=== PATIENT | female | born 1960 | race African-American/Black ===

== ENCOUNTER 2016-09-03 13:54 | Emergency (ER) | payer MEDICAID ==
[~2016-09-03] VITALS: Ht 170.2 cm; Wt 90.5 kg
[~2016-09-03 13:54] MED LIST: AMOXICILLIN 8751 TAB PO; ASPIRIN 81M81 MG/TA2 PO; CATAPRES0.2 MG PO; CATAPRES0.3 MG PO; CIPRO 500MG TA500 MG PO; CLONIDINE0.1 MG PO; CYMBALTA 30MG30 MG PO; DOXYCYCLINE 10100 MG PO; FIBERCON PO; FLAGYL500 MG PO; FLEXERIL 1010 MG/TAB PO; FLONASE NASAL S16 GM NS; FLONASEALLERGY NS; HYDRODIURIL50 MG PO; K-DUR 10 MEQ T10 MEQ PO; K-DUR20 MEQ PO; LOPRESSOR100 MG PO; LORTAB 5/500 501 TAB PO; METOPROLOL TART50 MG PO; MOBIC 7.5MG7.5 MG PO; NAPROSYN500 MG PO; NEURONTIN600 MG/TAB PO; NO HOME MEDICATIONS; NORCO 325 MG-51 TAB PO; NORCO 325 MG-7.1 TAB PO; NORVASC 10MG10 MG PO; OXYCONTIN 10MG10 MG PO; PAXIL 20MG20 MG PO; PERCOCET 325 MG1 TA2 PO; PREDNISONE20 MG PO; PROVENTIL0.09 MG/A1 IH; ROXICODONE 55 MG/TAB PO; SEROQUEL 1100 MG/TAB PO; TESSALON P100 MG/CAP PO; ULTRAM 50MG TAB50 MG PO; VALIUM 10MG10 MG/TAB PO; VALIUM 2MG T2 MG/TAB PO; VALIUM5 MG PO; ZITHROMAX 250M250 MG PO; ZOFRAN ODT8 MG PO; ZYRTEC 10MG10 MG PO
[2016-09-03 13:55] VITALS: BP 173/124; TEMP 99.1
[2016-09-03 14:45] LABS: INFLUENZA B NEGATIVE
[2016-09-03] MEDS ORDERED: ZITHROMAX Z PA250 MG PO (14:54)
[2016-09-03] MEDS ORDERED: PREDNISONE10 MG PO (14:54)
[2016-09-03 15:15] VITALS: PULSE 102
== END 2016-09-03 15:15 | disposition home or self-care (01) ==
LOC: COL.ER 13:54
PROVIDERS: Nurse Practitioner
DX: J40 Bronchitis, not specified as acute or chronic (principal); F17.210 Nicotine dependence, cigarettes, uncomplicated; I10 Essential (primary) hypertension

== ENCOUNTER 2016-10-22 08:45 | Outpatient (RCR) | payer MEDICAID ==
[~2016-10-22 08:45] MED LIST changes: +PREDNISONE10 MG PO; +ZITHROMAX Z PA250 MG PO
== END 2016-11-13 | disposition home or self-care (01) ==
LOC: MKS.ESL.PT
DX: M16.12 Unilateral primary osteoarthritis, left hip (principal); Z96.642 Presence of left artificial hip joint
CPT/HCPCS: G0283-GP

== ENCOUNTER 2016-12-20 10:08 | Emergency (ER) | payer MEDICAID ==
[~2016-12-20] VITALS: Ht 172.7 cm; Wt 90.9 kg
[2016-12-20 10:11] VITALS: TEMP 98.5
[2016-12-20] MEDS ORDERED: LIPITOR20 MG PO (10:48)
[2016-12-20] MEDS ORDERED: AMITRIPTYLINE H25 M1 PO (10:49)
[2016-12-20] MEDS ORDERED: ULTRAM 50MG TAB50 MG PO (12:39)
[2016-12-20 13:04] VITALS: BP 146/104; PULSE 78
== END 2016-12-20 13:06 | disposition home or self-care (01) ==
LOC: COL.ER 10:08
DX: M25.552 Pain in left hip (principal); Z96.642 Presence of left artificial hip joint; S09.90XA Unspecified injury of head, initial encounter; M54.2 Cervicalgia; W10.8XXA Fall (on) (from) other stairs and steps, initial encounter; Y92.008 Other place in unspecified non-institutional (private) residence as the place of occurrence of the external cause; I10 Essential (primary) hypertension; F17.210 Nicotine dependence, cigarettes, uncomplicated; F43.10 Post-traumatic stress disorder, unspecified; R07.9 Chest pain, unspecified
CPT/HCPCS: J2270; J2405

== ENCOUNTER → 2017-01-02 | Outpatient (CLI) | payer MEDICAID ==
[~2017-01-02] MED LIST changes: +AMITRIPTYLINE H25 M1 PO; +LIPITOR20 MG PO
== END ==
LOC: MC.RAD 08:14
DX: N64.4 Mastodynia (principal); Z98.890 Other specified postprocedural states

== ENCOUNTER 2017-01-13 11:15 | Outpatient (RCR) | payer MEDICAID | END 2017-02-06 13:56 | disposition still patient (30) | LOC: WSPT 11:15 | DX: M17.0 Bilateral primary osteoarthritis of knee (principal); M25.552 Pain in left hip; S86.911A Strain of unspecified muscle(s) and tendon(s) at lower leg level, right leg, initial encounter; Z96.642 Presence of left artificial hip joint ==

== ENCOUNTER 2018-01-23 12:45 | Outpatient (RCR) | payer MEDICAID ==
[2018-02-22] MEDS ORDERED: MACROBID 1100 MG/CAP PO (15:11)
== END 2018-03-08 | disposition home or self-care (01) ==
LOC: MKS.ESL.PT
DX: I89.0 Lymphedema, not elsewhere classified (principal)

== ENCOUNTER 2018-02-22 13:23 | Emergency (ER) | payer MEDICAID ==
[~2018-02-22] VITALS: Ht 170.2 cm; Wt 91.4 kg
[2018-02-22 13:26] VITALS: TEMP 99
[2018-02-22 14:02] LABS: BASO % 0.7 % (0.0-2.0); EOS # 0.3 (0.0-0.7); EOS % 4.4 % (0-4.0); GRAN # 2.7 (1.4-6.5); GRAN % 48.6 % (42.2-75.2); HEMATOCRIT 38.6 % (37.0-47.0); LYMPH # 2.2 (1.2-3.4); LYMPH % 39.5 % (20.0-51.0); MEAN CELL VOLUME 81 fl (80.0-100.0); MEAN CORPUSCULAR HEMOGLOBIN 27 pg (27.0-31.0); MEAN CORPUSCULAR HGB CONC 34 g/dl (33.0-37.0); MEAN PLATELET VOLUME 10.6 fl (7.4-10.4); MONO # 0.4 (0.1-0.6); MONO % 6.6 % (1.7-9.3); PLATELET COUNT 297 K/mm3 (130-400); RED BLOOD COUNT 4.78 M/mm3 (4.10-5.30); REDCELL DISTRIBUTION WIDTH-CV 14.8 % (11.5-14.5)
[2018-02-22 14:09] LABS: COLLECTION METHOD CLEAN CATCH
[2018-02-22 14:14] LABS: BILIRUBIN,TOTAL 0.4 mg/dL (0.0-1.0); CALCIUM 9.2 mg/dL (8.4-10.2); CREATININE, serum 1.03 mg/dL (0.52-1.25); POTASSIUM 3.3 mmol/L (3.4-5.0); TOTAL PROTEIN 7.6 gm/dL (6.4-8.2)
[2018-02-22 14:36] LABS: PH 5 (5-8); URINE APPEARANCE Hazy; URINE BACTERIA Rare /hpf; URINE BILIRUBIN Negative (NEGATIVE); URINE BLOOD 2+ (NEGATIVE); URINE COLOR Yellow; URINE GLUCOSE Negative (NEGATIVE); URINE KETONE Negative (NEGATIVE); URINE LEUKOCYTE ESTERASE Negative (NEGATIVE); URINE NITRATE Negative (NEGATIVE); URINE PROTEIN(semi-quant) Negative (NEGATIVE); URINE UROBILINOGEN Negative (NEGATIVE)
[2018-02-22] MEDS ORDERED: MACROBID 1100 MG/CAP PO (15:11)
[2018-02-22 16:38] VITALS: BP 130/86; PULSE 63
== END 2018-02-22 15:22 | disposition home or self-care (01) ==
LOC: COL.ER 13:23
PROVIDERS: Family Medicine
DX: I89.0 Lymphedema, not elsewhere classified (principal); H04.123 Dry eye syndrome of bilateral lacrimal glands; N39.0 Urinary tract infection, site not specified; Z79.891 Long term (current) use of opiate analgesic; Z79.82 Long term (current) use of aspirin

== ENCOUNTER → 2018-03-25 | Outpatient (CLI) | payer MEDICAID ==
[~2018-03-25] MED LIST changes: +MACROBID 1100 MG/CAP PO
== END ==
LOC: MC.RAD 12:29
DX: Z12.31 Encounter for screening mammogram for malignant neoplasm of breast (principal); Z98.890 Other specified postprocedural states

== ENCOUNTER 2018-04-10 11:58 | Outpatient (RCR) | payer MEDICAID ==
[2018-04-10] MEDS ORDERED: TUSS PO (16:18)
[2018-04-10] MEDS ORDERED: DOXYCYCLINE 10100 MG PO (16:18)
[2018-04-10] MEDS ORDERED: NORCO 325 MG-51 TAB PO (18:49)
[2018-04-17] MEDS ORDERED: PREDNISONE20 MG PO (13:23)
[2018-04-17] MEDS ORDERED: ZITHROMAX Z PA250 MG PO (13:23)
== END 2018-07-09 | disposition home or self-care (01) ==
LOC: MKS.ESL.PT
DX: I89.0 Lymphedema, not elsewhere classified (principal); Z85.3 Personal history of malignant neoplasm of breast; Z98.890 Other specified postprocedural states; F17.210 Nicotine dependence, cigarettes, uncomplicated; Z79.899 Other long term (current) drug therapy
CPT/HCPCS: G8990-GP; G8991-GP

== ENCOUNTER 2018-04-10 14:41 | Emergency (ER) | payer MEDICAID ==
[~2018-04-10] VITALS: Ht 170.2 cm; Wt 90.9 kg
[2018-04-10 14:54] VITALS: TEMP 98.8
[2018-04-10] MEDS ORDERED: DOXYCYCLINE 10100 MG PO (16:18)
[2018-04-10] MEDS ORDERED: TUSS PO (16:18)
[2018-04-10 16:37] VITALS: BP 159/94; PULSE 77
[2018-04-10] MEDS ORDERED: NORCO 325 MG-51 TAB PO (18:49)
== END 2018-04-10 16:39 | disposition home or self-care (01) ==
LOC: COL.ER 14:41
DX: J20.9 Acute bronchitis, unspecified (principal); J32.9 Chronic sinusitis, unspecified; I10 Essential (primary) hypertension; J45.909 Unspecified asthma, uncomplicated; Z79.82 Long term (current) use of aspirin; Z79.51 Long term (current) use of inhaled steroids

== ENCOUNTER 2018-04-17 12:01 | Emergency (ER) | payer MEDICAID ==
[~2018-04-17] VITALS: Ht 172.7 cm; Wt 90.9 kg
[~2018-04-17 12:01] MED LIST changes: +TUSS PO
[2018-04-17 12:13] VITALS: BP 127/90; TEMP 98.7
[2018-04-17] MEDS ORDERED: ZITHROMAX Z PA250 MG PO (13:23)
[2018-04-17] MEDS ORDERED: PREDNISONE20 MG PO (13:23)
[2018-04-17 13:35] VITALS: PULSE 81
== END 2018-04-17 13:35 | disposition home or self-care (01) ==
LOC: COL.ER 12:01
DX: J20.9 Acute bronchitis, unspecified (principal); I10 Essential (primary) hypertension; J45.909 Unspecified asthma, uncomplicated; F17.210 Nicotine dependence, cigarettes, uncomplicated; Z79.82 Long term (current) use of aspirin
CPT/HCPCS: J7512

== ENCOUNTER 2018-05-08 15:30 | Outpatient (RCR) | payer MEDICARE, MEDICAID | END 2018-07-09 | disposition home or self-care (01) | LOC: MKS.ESL.PT | DX: I89.0 Lymphedema, not elsewhere classified (principal); Z85.3 Personal history of malignant neoplasm of breast | CPT/HCPCS: G8990-GP; G8991-GP ==

== ENCOUNTER → 2018-05-08 | Outpatient (CLI) | payer MEDICARE, MEDICAID | LOC: COL.VAS 08:30 | DX: I51.7 Cardiomegaly (principal) ==

== ENCOUNTER 2018-05-19 12:31 | Emergency (ER) | payer MEDICARE, MEDICAID ==
[~2018-05-19] VITALS: Ht 170.2 cm; Wt 89.5 kg
[2018-05-19 13:24] LABS: BASO % 0.6 % (0.0-2.0); EOS # 0.2 (0.0-0.7); EOS % 3.8 % (0-4.0); GRAN # 2.2 (1.4-6.5); GRAN % 44.6 % (42.2-75.2); HEMOGLOBIN 13.1 g/dl (12.5-16.0); LYMPH # 2.1 (1.2-3.4); LYMPH % 43.1 % (20.0-51.0); MEAN CELL VOLUME 83 fl (80.0-100.0); MEAN CORPUSCULAR HEMOGLOBIN 28 pg (27.0-31.0); MEAN CORPUSCULAR HGB CONC 34 g/dl (33.0-37.0); MEAN PLATELET VOLUME 10.8 fl (7.4-10.4); MONO # 0.4 (0.1-0.6); MONO % 7.7 % (1.7-9.3); PLATELET COUNT 257 K/mm3 (130-400); RED BLOOD COUNT 4.72 M/mm3 (4.10-5.30); REDCELL DISTRIBUTION WIDTH-CV 14.2 % (11.5-14.5)
[2018-05-19 13:35] LABS: ALBUMIN 3.7 gm/dL (3.5-5.0); BILIRUBIN,TOTAL 0.8 mg/dL (0.0-1.0); CALCIUM 9.4 mg/dL (8.4-10.2); CREATININE, serum 0.84 mg/dL (0.52-1.25)
[2018-05-19 13:50] LABS: COLLECTION METHOD CLEAN CATCH
[2018-05-19 13:58] LABS: PH 6 (5-8); URINE APPEARANCE Clear; URINE BACTERIA Rare /hpf; URINE BILIRUBIN Negative (NEGATIVE); URINE BLOOD 2+ (NEGATIVE); URINE COLOR Yellow; URINE GLUCOSE Negative (NEGATIVE); URINE KETONE Negative (NEGATIVE); URINE LEUKOCYTE ESTERASE Negative (NEGATIVE); URINE NITRATE Negative (NEGATIVE); URINE PROTEIN(semi-quant) Negative (NEGATIVE); URINE UROBILINOGEN Negative (NEGATIVE)
[2018-05-19 14:20] VITALS: BP 144/94; PULSE 67; TEMP 98.8
== END 2018-05-19 14:20 | disposition home or self-care (01) ==
LOC: COL.ER 12:31
PROVIDERS: Emergency Medicine
DX: I89.0 Lymphedema, not elsewhere classified (principal); M79.10 Myalgia, unspecified site; Z85.3 Personal history of malignant neoplasm of breast; Z79.82 Long term (current) use of aspirin
CPT/HCPCS: J1885

== ENCOUNTER 2018-07-29 10:32 | Emergency (ER) | payer MEDICARE, MEDICAID ==
[~2018-07-29] VITALS: Ht 170.2 cm; Wt 92.5 kg
[2018-07-29 10:38] VITALS: BP 154/110; TEMP 98.1
[2018-07-29 12:42] LABS: BASO % 0.6 % (0.0-2.0); EOS # 0.2 (0.0-0.7); EOS % 3.8 % (0-4.0); GRAN # 1.7 (1.4-6.5); GRAN % 34.8 % (42.2-75.2); HEMATOCRIT 37.6 % (37.0-47.0); HEMOGLOBIN 12.5 g/dl (12.5-16.0); LYMPH # 2.6 (1.2-3.4); LYMPH % 53.3 % (20.0-51.0); MEAN CELL VOLUME 82 fl (80.0-100.0); MEAN CORPUSCULAR HEMOGLOBIN 27 pg (27.0-31.0); MEAN CORPUSCULAR HGB CONC 33 g/dl (33.0-37.0); MEAN PLATELET VOLUME 10.7 fl (7.4-10.4); MONO # 0.4 (0.1-0.6); MONO % 7.3 % (1.7-9.3); PLATELET COUNT 267 K/mm3 (130-400); RED BLOOD COUNT 4.61 M/mm3 (4.10-5.30); REDCELL DISTRIBUTION WIDTH-CV 14.5 % (11.5-14.5)
[2018-07-29 12:56] LABS: ALANINE AMINOTRANSFERASE 24 U/L (9-52); ALBUMIN 3.7 gm/dL (3.5-5.0); ALKALINE PHOSPHATASE 113 U/L (50-136); ANION GAP 5 mmol/L (7-16); AST,SGOT 27 U/L (15-37); BILIRUBIN,TOTAL 0.5 mg/dL (0.0-1.0); BLOOD UREA NITROGEN 10 mg/dL (7-17); CALCIUM 9.2 mg/dL (8.4-10.2); CARBON DIOXIDE 29 mmol/L (22-30); CHLORIDE 105 mmol/L (98-107); CREATININE, serum 0.73 mg/dL (0.52-1.25); GLUCOSE 90 mg/dL (74-106); LIPASE 78 U/L (23-300); POTASSIUM 3.5 mmol/L (3.4-5.0); SODIUM 140 mmol/L (137-145)
[2018-07-29 12:59] LABS: C-REACTIVE PROTEIN < 0.5 mg/dL (0.0-0.9)
[2018-07-29 13:00] LABS: ERYTHROCYTE SEDIMENTATION RATE 14 mm/hr (0-30)
[2018-07-29 13:14] LABS: TROPONIN-I < 0.012 ng/mL (0.000-0.034)
[2018-07-29 13:37] LABS: COLLECTION METHOD CLEAN CATCH
[2018-07-29 13:48] LABS: PH 7 (5-8); URINE APPEARANCE Clear; URINE BACTERIA Rare /hpf; URINE BILIRUBIN Negative (NEGATIVE); URINE BLOOD 2+ (NEGATIVE); URINE COLOR Colorless; URINE GLUCOSE Negative (NEGATIVE); URINE KETONE Negative (NEGATIVE); URINE LEUKOCYTE ESTERASE Negative (NEGATIVE); URINE NITRATE Negative (NEGATIVE); URINE PROTEIN(semi-quant) Negative (NEGATIVE); URINE UROBILINOGEN Negative (NEGATIVE)
[2018-07-29] MEDS ORDERED: ANTIVERT 25MG25 MG PO (15:02)
[2018-07-29] MEDS ORDERED: PHENERGAN 25 TA25 MG PO (15:02)
[2018-07-29 15:20] VITALS: PULSE 70
== END 2018-07-29 15:20 | disposition home or self-care (01) ==
LOC: COL.ER 10:32
PROVIDERS: Emergency Medicine
DX: R42 Dizziness and giddiness (principal); I10 Essential (primary) hypertension; F17.210 Nicotine dependence, cigarettes, uncomplicated; Z79.51 Long term (current) use of inhaled steroids; Z79.82 Long term (current) use of aspirin
CPT/HCPCS: J0780; J1200; J7030

== ENCOUNTER 2018-08-25 11:06 | Emergency (ER) | payer MEDICARE, MEDICAID ==
[~2018-08-25] VITALS: Ht 170.2 cm; Wt 87.7 kg
[~2018-08-25 11:06] MED LIST changes: +ANTIVERT 25MG25 MG PO; +PHENERGAN 25 TA25 MG PO
[2018-08-25 11:12] VITALS: TEMP 98.4
[2018-08-25 12:23] LABS: BASO % 0.6 % (0.0-2.0); EOS # 0.2 (0.0-0.7); EOS % 3.6 % (0-4.0); GRAN # 2.2 (1.4-6.5); GRAN % 47.2 % (42.2-75.2); HEMATOCRIT 41.7 % (37.0-47.0); HEMOGLOBIN 13.8 g/dl (12.5-16.0); LYMPH % 41.2 % (20.0-51.0); MEAN CELL VOLUME 82 fl (80.0-100.0); MEAN CORPUSCULAR HEMOGLOBIN 27 pg (27.0-31.0); MEAN CORPUSCULAR HGB CONC 33 g/dl (33.0-37.0); MEAN PLATELET VOLUME 10.1 fl (7.4-10.4); MONO # 0.3 (0.1-0.6); MONO % 7.2 % (1.7-9.3); PLATELET COUNT 286 K/mm3 (130-400); RED BLOOD COUNT 5.07 M/mm3 (4.10-5.30); REDCELL DISTRIBUTION WIDTH-CV 15.2 % (11.5-14.5)
[2018-08-25 12:33] LABS: BILIRUBIN,TOTAL 1.2 mg/dL (0.0-1.0); CALCIUM 9.3 mg/dL (8.4-10.2); CREATININE, serum 0.85 mg/dL (0.52-1.25); TOTAL PROTEIN 7.5 gm/dL (6.4-8.2)
[2018-08-25 12:51] LABS: COLLECTION METHOD CLEAN CATCH
[2018-08-25 13:04] LABS: PH 7 (5-8); SQUAMOUS EPITHELIAL 0-2 /hpf; URINE APPEARANCE Clear; URINE BACTERIA None Seen /hpf; URINE BILIRUBIN Negative (NEGATIVE); URINE BLOOD 2+ (NEGATIVE); URINE COLOR Yellow; URINE GLUCOSE Negative (NEGATIVE); URINE KETONE Negative (NEGATIVE); URINE LEUKOCYTE ESTERASE Negative (NEGATIVE); URINE NITRATE Negative (NEGATIVE); URINE PROTEIN(semi-quant) Negative (NEGATIVE); URINE UROBILINOGEN Negative (NEGATIVE)
[2018-08-25 13:38] VITALS: BP 154/90; PULSE 50
== END 2018-08-25 13:38 | disposition home or self-care (01) ==
LOC: COL.ER 11:06
PROVIDERS: Nurse Practitioner
DX: R42 Dizziness and giddiness (principal); R00.1 Bradycardia, unspecified; I10 Essential (primary) hypertension

== ENCOUNTER 2018-12-25 07:27 | Emergency (ER) | payer MEDICARE, MEDICAID ==
[~2018-12-25] VITALS: Ht 170.2 cm; Wt 86.1 kg
[2018-12-25 07:30] VITALS: TEMP 98.6
[2018-12-25 08:36] LABS: BASO % 0.7 % (0.0-2.0); EOS # 0.2 (0.0-0.7); EOS % 5.4 % (0-4.0); GRAN # 1.8 (1.4-6.5); HEMATOCRIT 40.5 % (37.0-47.0); HEMOGLOBIN 13.4 g/dl (12.5-16.0); LYMPH # 1.9 (1.2-3.4); LYMPH % 42.6 % (20.0-51.0); MEAN CELL VOLUME 83 fl (80.0-100.0); MEAN CORPUSCULAR HEMOGLOBIN 28 pg (27.0-31.0); MEAN CORPUSCULAR HGB CONC 33 g/dl (33.0-37.0); MONO # 0.5 (0.1-0.6); MONO % 10.1 % (1.7-9.3); PLATELET COUNT 261 K/mm3 (130-400); RED BLOOD COUNT 4.86 M/mm3 (4.10-5.30); REDCELL DISTRIBUTION WIDTH-CV 14.3 % (11.5-14.5)
[2018-12-25 08:47] LABS: ALANINE AMINOTRANSFERASE 33 U/L (9-52); ALBUMIN 3.6 gm/dL (3.5-5.0); ALKALINE PHOSPHATASE 109 U/L (50-136); ANION GAP 6 mmol/L (7-16); AST,SGOT 38 U/L (15-37); BILIRUBIN,TOTAL 0.6 mg/dL (0.0-1.0); BLOOD UREA NITROGEN 13 mg/dL (7-17); CALCIUM 9.2 mg/dL (8.4-10.2); CARBON DIOXIDE 29 mmol/L (22-30); CHLORIDE 106 mmol/L (98-107); CREATININE, serum 0.75 (0.52-1.25); GLUCOSE 92 mg/dL (74-106); SODIUM 142 mmol/L (137-145); TOTAL PROTEIN 7.3 gm/dL (6.4-8.2)
[2018-12-25 08:48] LABS: C-REACTIVE PROTEIN < 0.5 mg/dL (0.0-0.9)
[2018-12-25 09:31] LABS: COLLECTION METHOD CLEAN CATCH
[2018-12-25 09:46] LABS: MUCOUS Present /lpf; PH 5 (5-8); SQUAMOUS EPITHELIAL 20-50 /hpf; URINE APPEARANCE Cloudy; URINE BACTERIA Rare /hpf; URINE BILIRUBIN Negative (NEGATIVE); URINE BLOOD 2+ (NEGATIVE); URINE GLUCOSE Negative (NEGATIVE); URINE KETONE Negative (NEGATIVE); URINE LEUKOCYTE ESTERASE 1+ (NEGATIVE); URINE NITRATE Negative (NEGATIVE); URINE PROTEIN(semi-quant) Negative (NEGATIVE); URINE UROBILINOGEN Negative (NEGATIVE)
[2018-12-25 09:47] LABS: URINE COLOR Yellow
[2018-12-25] MEDS ORDERED: DIFLUCAN150 MG PO (10:05)
[2018-12-25] MEDS ORDERED: MACROBID 1100 MG/CAP PO (10:05)
[2018-12-25 10:32] VITALS: BP 159/109; PULSE 78
== END 2018-12-25 10:34 | disposition home or self-care (01) ==
LOC: COL.ER 07:27
PROVIDERS: Nurse Practitioner
DX: N39.0 Urinary tract infection, site not specified (principal); K13.70 Unspecified lesions of oral mucosa; F17.210 Nicotine dependence, cigarettes, uncomplicated; F12.90 Cannabis use, unspecified, uncomplicated; F43.10 Post-traumatic stress disorder, unspecified; F32.9 Major depressive disorder, single episode, unspecified; Z85.3 Personal history of malignant neoplasm of breast; Z90.11 Acquired absence of right breast and nipple; Z96.641 Presence of right artificial hip joint; Z79.51 Long term (current) use of inhaled steroids; Z79.82 Long term (current) use of aspirin
CPT/HCPCS: J2550

== ENCOUNTER 2019-04-15 09:56 | Emergency (ER) | payer MEDICARE, MEDICAID ==
[~2019-04-15] VITALS: Ht 170.2 cm; Wt 85.2 kg
[~2019-04-15 09:56] MED LIST changes: +DIFLUCAN150 MG PO
[2019-04-15 10:00] VITALS: BP 163/97; TEMP 97.2
[2019-04-15] MEDS ORDERED: AMOXICILLIN 50500 MG PO (10:32)
[2019-04-15 10:47] VITALS: PULSE 81
== END 2019-04-15 10:47 | disposition home or self-care (01) ==
LOC: COL.ER 09:56
DX: J32.9 Chronic sinusitis, unspecified (principal); I10 Essential (primary) hypertension; F32.9 Major depressive disorder, single episode, unspecified; F43.10 Post-traumatic stress disorder, unspecified; E78.5 Hyperlipidemia, unspecified; M54.9 Dorsalgia, unspecified; G89.29 Other chronic pain; F17.210 Nicotine dependence, cigarettes, uncomplicated; Z79.82 Long term (current) use of aspirin; Z98.890 Other specified postprocedural states

== ENCOUNTER → 2019-04-29 | Outpatient (CLI) | payer MEDICARE, MEDICAID ==
[~2019-04-29] MED LIST changes: +AMOXICILLIN 50500 MG PO
== END ==
LOC: COL.RAD 09:21
DX: C50.411 Malignant neoplasm of upper-outer quadrant of right female breast (principal); M43.16 Spondylolisthesis, lumbar region
CPT/HCPCS: A9503

== ENCOUNTER 2019-05-07 08:41 | Emergency (ER) | payer MEDICARE, MEDICAID ==
[~2019-05-07] VITALS: Ht 170.2 cm; Wt 65.9 kg
[2019-05-07 09:12] LABS: BASO % 0.4 % (0.0-2.0); EOS # 0.2 (0.0-0.7); GRAN # 2.7 (1.4-6.5); HEMATOCRIT 41.2 % (37.0-47.0); HEMOGLOBIN 13.8 g/dl (12.5-16.0); LYMPH # 1.7 (1.2-3.4); LYMPH % 34.3 % (20.0-51.0); MEAN CELL VOLUME 83 fl (80.0-100.0); MEAN CORPUSCULAR HEMOGLOBIN 28 pg (27.0-31.0); MEAN CORPUSCULAR HGB CONC 34 g/dl (33.0-37.0); MEAN PLATELET VOLUME 10.2 fl (7.4-10.4); MONO # 0.4 (0.1-0.6); MONO % 8.1 % (1.7-9.3); PLATELET COUNT 260 K/mm3 (130-400); RED BLOOD COUNT 4.97 M/mm3 (4.10-5.30); REDCELL DISTRIBUTION WIDTH-CV 13.9 % (11.5-14.5)
[2019-05-07 09:17] LABS: ALANINE AMINOTRANSFERASE 25 U/L (9-52); ALBUMIN 4.3 gm/dL (3.5-5.0); ALKALINE PHOSPHATASE 110 U/L (50-136); ANION GAP 9 mmol/L (7-16); AST,SGOT 30 U/L (15-37); BILIRUBIN,TOTAL 0.7 mg/dL (0.0-1.0); BLOOD UREA NITROGEN 9 mg/dL (7-17); CALCIUM 9.6 mg/dL (8.4-10.2); CARBON DIOXIDE 28 mmol/L (22-30); CHLORIDE 102 mmol/L (98-107); CREATININE, serum 0.71 (0.52-1.25); GLUCOSE 101 mg/dL (74-106); LIPASE 69 U/L (23-300); POTASSIUM 3.4 mmol/L (3.4-5.0); SODIUM 138 mmol/L (137-145)
[2019-05-07 09:29] LABS: PARTIAL THROMBOPLASTIN TIME 29.8 SECONDS (26.0-37.0); PROTHROMBIN TIME 11.7 SECONDS (9.7-12.8)
[2019-05-07 09:34] LABS: TROPONIN-I < 0.012 ng/mL (0.000-0.035)
[2019-05-07] MEDS ORDERED: K-DUR20 MEQ PO (12:17)
[2019-05-07] MEDS ORDERED: PREDNISONE20 MG PO (13:40)
[2019-05-07 13:50] VITALS: BP 172/113; PULSE 74; TEMP 98.5
== END 2019-05-07 13:50 | disposition home or self-care (01) ==
LOC: COL.ER 08:41
PROVIDERS: Emergency Medicine
DX: J40 Bronchitis, not specified as acute or chronic (principal); E78.5 Hyperlipidemia, unspecified; I10 Essential (primary) hypertension; F17.210 Nicotine dependence, cigarettes, uncomplicated; Z85.3 Personal history of malignant neoplasm of breast; Z79.51 Long term (current) use of inhaled steroids; Z79.82 Long term (current) use of aspirin
CPT/HCPCS: J2930; Q9967

== ENCOUNTER 2019-05-13 02:39 | Emergency (ER) | payer MEDICARE, MEDICAID ==
[~2019-05-13] VITALS: Ht 170.2 cm; Wt 81.8 kg
[2019-05-13 02:41] VITALS: BP 144/93; TEMP 98.1
[2019-05-13 03:55] VITALS: PULSE 63
== END 2019-05-13 03:55 | disposition home or self-care (01) ==
LOC: COL.ER 02:39
DX: G89.18 Other acute postprocedural pain (principal); F17.210 Nicotine dependence, cigarettes, uncomplicated; Z87.39 Personal history of other diseases of the musculoskeletal system and connective tissue; Z79.82 Long term (current) use of aspirin; Z79.51 Long term (current) use of inhaled steroids

== ENCOUNTER 2019-05-21 09:58 | Emergency (ER) | payer MEDICARE, MEDICAID ==
[~2019-05-21] VITALS: Ht 170.2 cm; Wt 85.9 kg
[2019-05-21 10:17] VITALS: BP 137/86; TEMP 97.6
[2019-05-21] MEDS ORDERED: CILOXAN 5 ML5 ML OD (11:28)
[2019-05-21 11:41] VITALS: PULSE 75
== END 2019-05-21 11:42 | disposition home or self-care (01) ==
LOC: COL.ER 09:58
DX: H10.89 Other conjunctivitis (principal); Z48.817 Encounter for surgical aftercare following surgery on the skin and subcutaneous tissue; F43.10 Post-traumatic stress disorder, unspecified; M06.9 Rheumatoid arthritis, unspecified; F17.210 Nicotine dependence, cigarettes, uncomplicated; Z79.51 Long term (current) use of inhaled steroids; Z79.82 Long term (current) use of aspirin; Z98.890 Other specified postprocedural states

== ENCOUNTER 2019-09-07 15:24 | Emergency (ER) | payer MEDICARE, MEDICAID ==
[~2019-09-07] VITALS: Ht 170.2 cm; Wt 85.0 kg
[~2019-09-07 15:24] MED LIST changes: +CILOXAN 5 ML5 ML OD
[2019-09-07] MEDS ORDERED: AMOXICILLIN 8751 TAB PO (17:05)
[2019-09-07 17:15] VITALS: TEMP 98
[2019-09-07 17:38] LABS: BASO % 0.4 % (0.0-2.0); EOS # 0.2 (0.0-0.7); EOS % 2.6 % (0-4.0); GRAN # 3.2 (1.4-6.5); GRAN % 47.3 % (42.2-75.2); HEMATOCRIT 38.8 % (37.0-47.0); LYMPH # 2.7 (1.2-3.4); LYMPH % 40.3 % (20.0-51.0); MEAN CELL VOLUME 82 fl (80.0-100.0); MEAN CORPUSCULAR HEMOGLOBIN 28 pg (27.0-31.0); MEAN CORPUSCULAR HGB CONC 34 g/dl (33.0-37.0); MEAN PLATELET VOLUME 10.4 fl (7.4-10.4); MONO # 0.6 (0.1-0.6); MONO % 9.1 % (1.7-9.3); PLATELET COUNT 281 K/mm3 (130-400); RED BLOOD COUNT 4.72 M/mm3 (4.10-5.30); REDCELL DISTRIBUTION WIDTH-CV 13.9 % (11.5-14.5)
[2019-09-07 17:53] LABS: ALANINE AMINOTRANSFERASE 35 U/L (9-52); ALBUMIN 4.7 gm/dL (3.5-5.0); ALKALINE PHOSPHATASE 122 U/L (50-136); ANION GAP 11 mmol/L (7-16); AST,SGOT 40 U/L (15-37); BILIRUBIN,TOTAL 1.8 mg/dL (0.0-1.0); BLOOD UREA NITROGEN 14 mg/dL (7-17); CALCIUM 9.9 mg/dL (8.4-10.2); CARBON DIOXIDE 26 mmol/L (22-30); CHLORIDE 102 mmol/L (98-107); CREATININE, serum 0.73 (0.52-1.25); GLUCOSE 102 mg/dL (74-106); POTASSIUM 3.2 mmol/L (3.4-5.0); SODIUM 139 mmol/L (137-145); TOTAL PROTEIN 8.6 gm/dL (6.4-8.2)
[2019-09-07 18:08] LABS: TROPONIN-I < 0.012 ng/mL (0.000-0.035)
[2019-09-07 20:17] VITALS: BP 138/86; PULSE 87
== END 2019-09-07 20:12 | disposition home or self-care (01) ==
LOC: COL.ER 15:24
PROVIDERS: Nurse Practitioner
DX: R07.89 Other chest pain (principal); R05 Cough; I10 Essential (primary) hypertension; F43.10 Post-traumatic stress disorder, unspecified; F17.210 Nicotine dependence, cigarettes, uncomplicated; F32.9 Major depressive disorder, single episode, unspecified; Z88.8 Allergy status to other drugs, medicaments and biological substances; Z79.51 Long term (current) use of inhaled steroids; Z79.82 Long term (current) use of aspirin
CPT/HCPCS: J2405; J7030; Q9967

== ENCOUNTER 2021-04-19 08:23 | Emergency (ER) | payer MEDICARE, MEDICAID ==
[~2021-04-19] VITALS: Ht 172.7 cm; Wt 81.8 kg
[2021-04-19 08:28] VITALS: BP 149/72; PULSE 76; TEMP 98.3
[2021-04-19] MEDS ORDERED: AMOXICILLIN 50500 MG PO (08:56)
[2021-04-19] MEDS ORDERED: NORCO 325 MG-51 TAB PO (08:56)
== END 2021-04-19 09:08 | disposition home or self-care (01) ==
LOC: COL.ER 08:23
DX: K08.89 Other specified disorders of teeth and supporting structures (principal)
CPT/HCPCS: J1885

== ENCOUNTER 2021-06-06 08:38 | Emergency (ER) | payer MEDICARE, MEDICAID ==
[~2021-06-06] VITALS: Ht 172.7 cm; Wt 86.4 kg
[2021-06-06 09:06] VITALS: TEMP 98
[2021-06-06] MEDS ORDERED: TESSALON P100 MG/CAP PO (12:30)
[2021-06-06] MEDS ORDERED: PREDNISONE20 MG PO (12:30)
[2021-06-06] MEDS ORDERED: ZITHROMAX Z PA250 MG PO (12:30)
[2021-06-06 12:35] VITALS: BP 141/90; PULSE 73
== END 2021-06-06 12:35 | disposition home or self-care (01) ==
LOC: COL.ER 08:38
DX: J45.901 Unspecified asthma with (acute) exacerbation (principal); J06.9 Acute upper respiratory infection, unspecified; I10 Essential (primary) hypertension; E78.5 Hyperlipidemia, unspecified; Z87.891 Personal history of nicotine dependence; Z20.822 Contact with and (suspected) exposure to COVID-19; Z79.899 Other long term (current) drug therapy

== ENCOUNTER 2021-06-25 08:44 | Emergency (ER) | payer MEDICARE, MEDICAID ==
[~2021-06-25] VITALS: Ht 172.7 cm; Wt 81.8 kg
[2021-06-25 08:54] VITALS: BP 131/113; TEMP 98.5
[2021-06-25 09:30] LABS: STREP SCREEN NEGATIVE
[2021-06-25] MEDS ORDERED: AMOXICILLIN 8751 TAB PO (09:58)
== END 2021-06-25 10:08 | disposition home or self-care (01) ==
LOC: COL.ER 08:44
PROVIDERS: Family Medicine
DX: J32.9 Chronic sinusitis, unspecified (principal); I10 Essential (primary) hypertension; E78.5 Hyperlipidemia, unspecified; J45.909 Unspecified asthma, uncomplicated; Z20.822 Contact with and (suspected) exposure to COVID-19; Z88.0 Allergy status to penicillin; Z79.899 Other long term (current) drug therapy; Z79.82 Long term (current) use of aspirin

== ENCOUNTER 2022-02-12 06:44 | Emergency (ER) | payer MEDICARE, MEDICAID ==
[~2022-02-12] VITALS: Ht 170.2 cm; Wt 86.4 kg
[2022-02-12 06:50] VITALS: PULSE 86; TEMP 98.5
[2022-02-12] MEDS ORDERED: CEFTIN 250250 MG/TAB PO (07:26)
[2022-02-12 08:04] VITALS: BP 154/83
[2022-02-12 08:06] LABS: STREP SCREEN NEGATIVE
== END 2022-02-12 08:04 | disposition home or self-care (01) ==
LOC: COL.ER 06:44
PROVIDERS: Family Medicine
DX: H66.92 Otitis media, unspecified, left ear (principal); J02.9 Acute pharyngitis, unspecified; F17.210 Nicotine dependence, cigarettes, uncomplicated; Z28.310 Unvaccinated for COVID-19

== ENCOUNTER 2022-02-23 12:08 | Emergency (ER) | payer MEDICARE, MEDICAID ==
[~2022-02-23] VITALS: Ht 170.2 cm; Wt 84.1 kg
[~2022-02-23 12:08] MED LIST changes: +CEFTIN 250250 MG/TAB PO
[2022-02-23 12:27] VITALS: BP 152/101; PULSE 93; TEMP 97.9
== END 2022-02-23 14:00 | disposition home or self-care (01) ==
LOC: COL.ER 12:08
DX: J06.9 Acute upper respiratory infection, unspecified (principal); I10 Essential (primary) hypertension; Z28.311 Partially vaccinated for COVID-19

== ENCOUNTER 2023-06-14 10:38 | Emergency (ER) | payer MEDICARE, MEDICAID ==
[~2023-06-14] VITALS: Ht 170.2 cm; Wt 81.8 kg
[2023-06-14 10:56] VITALS: TEMP 98.1
[2023-06-14 11:16] LABS: COLLECTION METHOD CLEAN CATCH
[2023-06-14 11:31] LABS: URINE APPEARANCE Cloudy (CLEAR/HAZY); URINE BLOOD 3+ (NEGATIVE); URINE COLOR Yellow (YELLOW); URINE GLUCOSE Negative (NEGATIVE); URINE KETONE Negative (NEGATIVE); URINE NITRATE Negative (NEGATIVE); URINE PROTEIN(semi-quant) 1+ (NEGATIVE); URINE UROBILINOGEN 0.2 E.U/dL (0.2-1.0)
[2023-06-14 11:34] LABS: BASO # 0.1 K/mm3 (0.0-0.2); BASO % 0.6 % (0.0-2.0); EOS # 0.2 K/mm3 (0.0-0.7); EOS % 2.6 % (0.0-4.0); GRAN # 5.6 K/mm3 (1.4-6.5); GRAN % 65.2 % (42.2-75.2); HEMATOCRIT 41.3 % (37.0-47.0); HEMOGLOBIN 13.4 g/dl (12.5-16.0); LYMPH # 2.2 K/mm3 (1.2-3.4); LYMPH % 25.1 % (20.0-51.0); MEAN CELL VOLUME 83 fl (80.0-100.0); MEAN CORPUSCULAR HEMOGLOBIN 27 pg (27-31); MEAN CORPUSCULAR HGB CONC 32 g/dl (33.0-37.0); MEAN PLATELET VOLUME 10.2 fl (7.4-10.4); MONO # 0.5 K/mm3 (0.1-0.6); MONO % 6.2 % (1.7-9.3); PLATELET COUNT 296 K/mm3 (130-400); RED BLOOD COUNT 4.99 M/mm3 (4.10-5.30); REDCELL DISTRIBUTION WIDTH-CV 14.6 % (11.5-14.5)
[2023-06-14 11:53] LABS: ALBUMIN 3.6 gm/dL (3.4-4.8); BILIRUBIN,TOTAL 0.5 mg/dL (0.2-1.2); CALCIUM 9.7 mg/dL (8.4-10.2); CREATININE, serum 0.78 mg/dL (0.57-1.11); TOTAL PROTEIN 7.5 gm/dL (6.2-8.1)
[2023-06-14] MEDS ORDERED: LEVAQUIN 5500 MG/TA1 PO (12:35)
[2023-06-14 12:53] VITALS: BP 102/74; PULSE 86
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
== END 2023-06-14 12:54 | disposition home or self-care (01) ==
LOC: COL.ER 10:38
PROVIDERS: Personal Emergency Response Attendant
DX: N39.0 Urinary tract infection, site not specified (principal); F17.210 Nicotine dependence, cigarettes, uncomplicated
CPT/HCPCS: J7030